=== PATIENT | female | born 1940 | race Caucasian/White ===

== ENCOUNTER 2023-08-03 13:55 | Observation (INO) | payer OTHER ==
[2023-08-03 14:07] VITALS: BMI 30.9
[2023-08-03 14:44] LABS: VENOUS BASE EXCESS 0.1 mmol/L (-2-2); VENOUS O2 SATURATION 66.3 % (70-80); VENOUS PCO2 41.2 mmHg (38-52); VENOUS PH 7.4 (7.310-7.410)
[2023-08-03 14:51] LABS: BASO % 0.7 % (0-2.0); HEMATOCRIT 43.2 % (32.4-45.2); HEMOGLOBIN 14.2 GM/dL (10.7-15.3); LYMPH % 21.3 % (8-40); MEAN PLT VOLUME 9.5 fl (7.5-11.1); MONO % 10.9 % (3.8-10.2); NEUT % 66.1 % (42.8-82.8); PLATELET COUNT 220 10^3/uL (134-434); RBC 4.91 M/mm3 (3.60-5.2); RDW 14.2 % (11.6-15.6); WHITE BLOOD COUNT 6.6 K/mm3 (4.0-10.0)
[2023-08-03 14:59] LABS: INR 0.97 (0.83-1.09)
[2023-08-03 15:13] LABS: POTASSIUM 4.4 mmol/L (3.5-5.1)
[2023-08-03 15:15] LABS: BLOOD UREA NITROGEN 23.4 mg/dL (7-18); CALCIUM 9.5 mg/dL (8.5-10.1)
[2023-08-03 15:20] LABS: BILIRUBIN,TOTAL 0.5 mg/dL (0.2-1); TOT PROT 7.8 g/dl (6.4-8.2)
[2023-08-03 18:21] LABS: EPI CELLS 9 /uL (0-25.1); HYALINE CASTS 1 /uL (0-3.1); PH,URINE 5.5 (5.0-8.0); URINE APPEARANCE CLEAR; URINE BACTERIA 39 /uL (0-1359); URINE BILIRUBIN NEGATIVE (NEGATIVE); URINE COLOR YELLOW; URINE GLUCOSE (UA) 3+ (NEGATIVE); URINE KETONE 1+ (NEGATIVE); URINE LEUK ESTERASE NEGATIVE (NEGATIVE); URINE NITRITE NEGATIVE (NEGATIVE); URINE PROTEIN 1+ (NEGATIVE); URINE RBC 24 /uL (0-23.9); URINE UROBILINOGEN 0.2 mg/dL (0.2-1.0); URINE WBC 14 /uL (0-25.8)
[2023-08-03] MEDS: SODIUM CHLORIDE 1,000 ML IV SCH (20:26)
[2023-08-03] MEDS: INSULIN ASPART SLIDING SCALE (NOVOLOG) 1 VIAL SQ SCH (22:40)
[2023-08-04 08:19] LABS: HEMATOCRIT 37.1 % (32.4-45.2); HEMOGLOBIN 12.5 GM/dL (10.7-15.3); MCH 29.7 pg (25.7-33.7); MCHC 33.7 g/dl (32.0-36.0); MEAN CELL VOLUME 88.1 fl (80-96); MEAN PLT VOLUME 9.3 fl (7.5-11.1); PLATELET COUNT 191 10^3/uL (134-434); RBC 4.21 M/mm3 (3.60-5.2); RDW 14.3 % (11.6-15.6); WHITE BLOOD COUNT 5.2 K/mm3 (4.0-10.0)
[2023-08-04 08:23] LABS: BLOOD UREA NITROGEN 19.2 mg/dL (7-18); CALCIUM 8.7 mg/dL (8.5-10.1)
[2023-08-04 08:24] LABS: MAGNESIUM 1.9 mg/dL (1.8-2.4)
[2023-08-04 08:26] LABS: BILIRUBIN,DIRECT 0.1 mg/dL (0.0-0.2); PHOSPHOROUS 3.1 mg/dL (2.5-4.9)
[2023-08-04 09:25] LABS: ALBUMIN 3.1 g/dl (3.4-5.0); BILIRUBIN,TOTAL 0.5 mg/dL (0.2-1); CREATININE 0.8 mg/dL (0.55-1.3); TOT PROT 6.3 g/dl (6.4-8.2)
[2023-08-04] MEDS: CLOPIDOGREL BISULFATE 75 MG TABLET (FP) PO SCH (10:09)
[2023-08-04] MEDS: LISINOPRIL 20 MG TABLET PO SCH (10:09)
[2023-08-04] MEDS: MECLIZINE HCL 25 MG TABLET (FP) PO ONE (11:50)
[2023-08-05] MEDS: INSULIN (LEVEMIR) 100 UNITS/ML UNITS SQ SCH (06:29)
[2023-08-05] MEDS: ENOXAPARIN NA (PORCINE) 40 MG/0.4 ML DISP.SYRIN SQ SCH (09:28)
[2023-08-05] MEDS: MECLIZINE HCL 25 MG TABLET (FP) PO PRN (09:28)
[2023-08-05] MEDS: HYDROCHLOROTHIAZIDE 12.5 MG CAPSULE (FP) PO SCH (09:28)
[2023-08-05] MEDS: PANTOPRAZOLE 40 MG TABLET PO SCH (09:29)
[2023-08-05] MEDS: EMPAGLIFLOZIN (JARDIANCE) 10 MG TABLET PO SCH (09:30)
[2023-08-05 09:39] LABS: HEMATOCRIT 39.1 % (32.4-45.2); HEMOGLOBIN 13.1 GM/dL (10.7-15.3); MCH 29.2 pg (25.7-33.7); MCHC 33.4 g/dl (32.0-36.0); MEAN CELL VOLUME 87.5 fl (80-96); PLATELET COUNT 203 10^3/uL (134-434); RBC 4.47 M/mm3 (3.60-5.2); RDW 14.1 % (11.6-15.6); WHITE BLOOD COUNT 5.1 K/mm3 (4.0-10.0)
[2023-08-05 09:57] LABS: POTASSIUM 4.1 mmol/L (3.5-5.1)
[2023-08-05] MEDS ORDERED: PATIENT'S OWN MEDICATION (NON-FORMULARY) (Linaclotide 145 MCG Capsule) PO SCH (10:00)
[2023-08-05 10:02] LABS: CALCIUM 9.1 mg/dL (8.5-10.1)
[2023-08-05 10:03] LABS: ALBUMIN 3.3 g/dl (3.4-5.0)
[2023-08-05 10:06] LABS: BILIRUBIN,TOTAL 1.3 mg/dL (0.2-1); CREATININE 0.8 mg/dL (0.55-1.3)
[2023-08-05] MEDS: diphenhydrAMINE HCL 25 MG CAPSULE (FP) PO PRN (15:42)
[2023-08-06 07:48] LABS: HEMATOCRIT 40.5 % (32.4-45.2); HEMOGLOBIN 12.8 GM/dL (10.7-15.3); MCH 28.6 pg (25.7-33.7); MCHC 31.7 g/dl (32.0-36.0); MEAN CELL VOLUME 90.1 fl (80-96); MEAN PLT VOLUME 9.2 fl (7.5-11.1); PLATELET COUNT 194 10^3/uL (134-434); RDW 14.3 % (11.6-15.6); WHITE BLOOD COUNT 6.6 K/mm3 (4.0-10.0)
[2023-08-06 08:04] LABS: ALBUMIN 3.3 g/dl (3.4-5.0); BLOOD UREA NITROGEN 19.4 mg/dL (7-18); CALCIUM 8.8 mg/dL (8.5-10.1)
[2023-08-06 08:07] LABS: BILIRUBIN,DIRECT 0.3 mg/dL (0.0-0.2); CREATININE 0.9 mg/dL (0.55-1.3)
[2023-08-06 08:08] LABS: BILIRUBIN,TOTAL 0.7 mg/dL (0.2-1)
[2023-08-06 08:09] LABS: TOT PROT 6.7 g/dl (6.4-8.2)
[2023-08-07 08:34] LABS: POTASSIUM 3.9 mmol/L (3.5-5.1)
[2023-08-07 08:37] LABS: CALCIUM 9.4 mg/dL (8.5-10.1)
[2023-08-07 08:38] LABS: ALBUMIN 3.4 g/dl (3.4-5.0); BLOOD UREA NITROGEN 18.3 mg/dL (7-18)
[2023-08-07 08:40] LABS: BILIRUBIN,DIRECT 0.3 mg/dL (0.0-0.2)
[2023-08-07 08:41] LABS: CREATININE 0.8 mg/dL (0.55-1.3)
[2023-08-07 08:42] LABS: TOT PROT 6.9 g/dl (6.4-8.2)
[2023-08-07 08:46] LABS: HEMATOCRIT 40.8 % (32.4-45.2); HEMOGLOBIN 13.2 GM/dL (10.7-15.3); MCH 28.8 pg (25.7-33.7); MCHC 32.4 g/dl (32.0-36.0); MEAN CELL VOLUME 89.1 fl (80-96); MEAN PLT VOLUME 8.9 fl (7.5-11.1); PLATELET COUNT 193 10^3/uL (134-434); RBC 4.57 M/mm3 (3.60-5.2); RDW 14.5 % (11.6-15.6); WHITE BLOOD COUNT 6.4 K/mm3 (4.0-10.0)
[2023-08-07 11:16] VITALS: BP 144/66; PULSE 77; RESP 16; TEMP 98
== END 2023-08-07 17:16 | disposition home or self-care (01) ==
LOC: JER 13:55 → JERBED 16:53 → J6S 20:32
PROVIDERS: ADMIT Internal Medicine; ATTEND Internal Medicine
PROC: 3E023GC Introduction of Other Therapeutic Substance into Muscle, Percutaneous Approach (ICD-10-PCS; principal; 2023-08-03)
PROC: 3E013VG Introduction of Insulin into Subcutaneous Tissue, Percutaneous Approach (ICD-10-PCS; 2023-08-03)
PROC: 3E0337Z Introduction of Electrolytic and Water Balance Substance into Peripheral Vein, Percutaneous Approach (ICD-10-PCS; 2023-08-03)
DX: R94.02 Abnormal brain scan (principal); R42 Dizziness and giddiness; E11.9 Type 2 diabetes mellitus without complications; I10 Essential (primary) hypertension; Z86.718 Personal history of other venous thrombosis and embolism; Z88.8 Allergy status to other drugs, medicaments and biological substances
CPT/HCPCS: 0241U-QW; 36415; 70450-TC; 71045-TC-FY; 76705-TC; 80048; 80053; 80076; 81003; 82010; 82248; 82607; 82746; 82803; 82962; 83036; 83735; 83880; 84100; 84443; 84484; 85025; 85027; 85610; 86704; 86780; 86803; 86850; 86900; 86901; 87086; 87340; 87517; 93005; 93010; 96360; 96372; 97116-GP; 97162-GP; 99285-25; G0378

== ENCOUNTER 2023-09-27 19:04 | Emergency (ER) | payer SELFPAY ==
[2023-09-27 19:18] VITALS: BP 106/67; PULSE 20; RESP 78; TEMP 98.6; BMI 29.2
[2023-09-27] MEDS: LACTATED RINGERS SOLUTION 1000 ML INFUS.BAG IV ONE ×2 (20:43→22:35)
[2023-09-27 20:48] LABS: BASO % 0.7 % (0-2.0); HEMATOCRIT 44.8 % (32.4-45.2); HEMOGLOBIN 14.6 GM/dL (10.7-15.3); LYMPH % 28.1 % (8-40); MCH 28.6 pg (25.7-33.7); MCHC 32.6 g/dl (32.0-36.0); MEAN CELL VOLUME 87.8 fl (80-96); MEAN PLT VOLUME 9.9 fl (7.5-11.1); MONO % 10.9 % (3.8-10.2); NEUT % 58.3 % (42.8-82.8); PH,URINE 6.5 (5.0-8.0); PLATELET COUNT 282 10^3/uL (134-434); RDW 14.7 % (11.6-15.6); URINE APPEARANCE CLEAR; URINE BILIRUBIN NEGATIVE (NEGATIVE); URINE COLOR YELLOW; URINE GLUCOSE (UA) 3+ (NEGATIVE); URINE KETONE NEGATIVE (NEGATIVE); URINE LEUK ESTERASE NEGATIVE (NEGATIVE); URINE NITRITE NEGATIVE (NEGATIVE); URINE PROTEIN NEGATIVE (NEGATIVE); URINE UROBILINOGEN 0.2 mg/dL (0.2-1.0); WHITE BLOOD COUNT 7.6 K/mm3 (4.0-10.0)
[2023-09-27 22:00] LABS: CHLORIDE 93 mmol/L (98-107); SODIUM 132 mmol/L (136-145)
[2023-09-27 22:02] LABS: CALCIUM 9.6 mg/dL (8.5-10.1)
[2023-09-27 22:03] LABS: ALBUMIN 3.3 g/dl (3.4-5.0); BLOOD UREA NITROGEN 20.1 mg/dL (7-18); CO2 28 mmol/L (21-32)
[2023-09-27 22:04] LABS: ANION GAP 10 mmol/L (4-13); GLUCOSE,RANDOM 475 mg/dL (74-106); POTASSIUM 6.3 mmol/L (3.5-5.1)
[2023-09-27 22:05] LABS: SGPT/ALT 41 U/L (13-61)
[2023-09-27 22:06] LABS: CREATININE 1.4 mg/dL (0.55-1.3); SGOT/AST 54 U/L (15-37)
[2023-09-27 22:07] LABS: TOT PROT 7.1 g/dl (6.4-8.2)
[2023-09-27 22:08] LABS: BILIRUBIN,TOTAL 0.5 mg/dL (0.2-1)
[2023-09-27 22:09] LABS: ALK PHOS 318 U/L (45-117)
[2023-09-27 22:57] LABS: POTASSIUM 4.1 mmol/L (3.5-5.1)
[2023-09-27 22:59] LABS: BLOOD UREA NITROGEN 19.9 mg/dL (7-18); CALCIUM 9.7 mg/dL (8.5-10.1)
[2023-09-27 23:03] LABS: CREATININE 1.2 mg/dL (0.55-1.3)
== END 2023-09-27 23:56 | disposition home or self-care (01) ==
LOC: JER 19:04
DX: E11.65 Type 2 diabetes mellitus with hyperglycemia (principal); Z79.84 Long term (current) use of oral hypoglycemic drugs; Z20.822 Contact with and (suspected) exposure to COVID-19
CPT/HCPCS: 0241U-QW; 36415; 80048; 80053; 81003; 82962; 85025; 87086; 93005; 93010; 99284-25